=== PATIENT | female | born 1950 | race Caucasian/White ===

== ENCOUNTER 2017-06-24 13:48 | Inpatient (IN) | payer BC, MEDICARE ==
[2017-06-24] MEDS ORDERED: Albuterol/Ipratropium 3.0-0.5 MG/3 ML Neb Soln NEB ONE (14:02)
[2017-06-24] MEDS ORDERED: methylPREDNISolone Sodium Succinate 125 MG/2 ML SDV IVPUSH STA (14:08)
[2017-06-24] MEDS ORDERED: LORazepam 2 MG/ML Syringe IVPUSH ONE (14:09)
--- NOTE | 2017-06-24 14:24 | EDM.PDOC ---
ED HPI GENERAL MEDICAL PROBLEM - General Chief Complaint: Respiratory Problem Stated Complaint: COPD exac Time Seen by Provider: 06/24/17 14:02 Source of Information: Reports: Patient History Limitations: Reports: No Limitations, Respiratory Distress (at times has to stop and catch her breath while speaking. Can not finish a complete sentence. ) - History of Present Illness INITIAL COMMENTS - FREE TEXT/NARRATIVE: This patient is a 66 year old female that presents to the ER. Patient daughter is also patient historian due to patient shortness of breath. At times the patient is not able to complete full sentences. The patient reports she used to be a smoker and stopped smoking in December this year. She reports she has a history of having COPD. She reports that she has chronic shortness of breath, but the last 1 week has been worse. She reports she was seen by her PCP and prescribed an abx and steroid on June 18. She reports that since then, her breathing has become worse. She reports that the last 24 horus she has increased in her shortness of breath. She reports that last night she did not sleep much because she was to short of breath. She reports she has taken multiple breathing treatments today. She reports that she took 2 of them prior to coming to the ER today. The patient presents anxious and is crying. She reports that she does not want to be admitted to the hospital, but has agreed due to her shortness of breath. The patient denies hernandez, dizziness, n, v, d, f, abd pain, urinary/bowel changes. She does report some chest tightness due to shortness of breath. Onset Date: 06/17/17 Duration: Getting Worse Severity: Moderate Worsens with: Reports: Movement Associated Symptoms: Reports: Cough, Shortness of Breath. 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 Treatments - Related Data Allergies Allergy/AdvReac Type Severity Reaction Status Date / Time erythromycin base Allergy Hives Verified 06/24/17 13:54 latex Allergy Hives Verified 06/24/17 13:53 Sulfa (Sulfonamide Allergy Hives Verified 06/24/17 13:54 Antibiotics) Home Meds: Home Meds Albuterol Sulfate [Proair Hfa] 2 puff INH Q4H PRN 06/24/17 [History] Atenolol/Chlorthalidone [Atenolol-Chlorthalidone 100-25] 50 mg PO DAILY [History] Cefuroxime Axetil [Cefuroxime] 250 mg PO BID 06/24/17 [History] Ipratropium/Albuterol Sulfate [IJD: DuoNeb 3.0-0.5 MG/3 ML] 3 ml INH Q4H PRN [History] Mometasone/Formoterol [Dulera 200-5 MCG] 2 puff INH BID 06/24/17 [History] Potassium Chloride [Potassium Chloride] 20 mg PO DAILY 06/24/17 [History] ED ROS GENERAL - Review of Systems Review Of Systems: See Below Constitutional: Reports: No Symptoms HEENT: Reports: No Symptoms Respiratory: Reports: Shortness of Breath, Wheezing, Cough Cardiovascular: Reports: No Symptoms Endocrine: Reports: No Symptoms GI/Abdominal: Reports: No Symptoms : Reports: No Symptoms Musculoskeletal: Reports: No Symptoms Skin: Reports: No Symptoms Neurological: Reports: No Symptoms Psychiatric: Reports: Anxiety Hematologic/Lymphatic: Reports: No Symptoms Immunologic: Reports: No Symptoms ED EXAM, GENERAL - Physical Exam Exam: See Below Exam Limited By: Respiratory Distress (mild) General Appearance: Alert, WD/WN, No Apparent Distress Eye Exam: Bilateral Eye: Normal Inspection, PERRL Ears: Normal External Exam, Normal Canal, Hearing Grossly Normal, Normal TMs Ear Exam: Bilateral Ear: Auricle Normal, Canal Normal, TM normal Nose: Normal Inspection, Normal Mucosa, No Blood Throat/Mouth: Normal Inspection, Normal Lips, Normal Teeth, Normal Gums, Normal Oropharynx, Normal Voice, No Airway Compromise Head: Atraumatic, Normocephalic Neck: Normal Inspection, Supple, Non-Tender, Full Range of Motion Respiratory/Chest: Respiratory Distress (mild, not able to converse in full sentences. ), Decreased Breath Sounds (moderately throughout. More significant RLL. ), Crackles (RLL). No: Retractions Cardiovascular: Normal Peripheral Pulses, Regular Rate, Rhythm, No Edema, No Gallop, No JVD, No Murmur, No Rub Peripheral Pulses: 2+: Radial (L), Radial (R), Posterior Tibial (L), Posterior Tibial (R), Dorsalis Pedis (L), Dorsalis Pedis (R) GI/Abdominal: Normal Bowel Sounds, Soft, Non-Tender, No Organomegaly, No Distention, No Abnormal Bruit, No Mass, Pelvis Stable Back Exam: Normal Inspection, Full Range of Motion. No: CVA Tenderness (L), CVA Tenderness (R) Extremities: Normal Inspection, Normal Range of Motion, Non-Tender, No Pedal Edema, Normal Capillary Refill Neurological: Alert, Oriented, Normal Cognition, Normal Gait, No Motor/Sensory Deficits Psychiatric: Anxious Skin Exam: Warm, Dry, Intact, Normal Color, No Rash Lymphatic: No Adenopathy EKG INTERPRETATION EKG Date: 06/24/17 Time: 14:20 Rhythm: NSR Rate (Beats/Min): 85 [place]: Normal P-Wave: Present QRS: Normal ST-T: Normal QT: Normal Comparison: NA - No Prior EKG Course - Vital Signs Last Recorded V/S: Last Vital Signs Temp 98.1 F 06/24/17 13:49 Pulse 88 06/24/17 13:49 Resp 20 06/24/17 13:49 BP 157/92 H 06/24/17 13:49 Pulse Ox 94 L 06/24/17 13:49 - Orders/Labs/Meds Orders: Active Orders 24 hr Category Date Time Status RT Aerosol Therapy [RC] ASDIRECTED Care 06/24/17 14:04 Active Chest 2V [CR] Stat Exams 06/24/17 14:01 Taken CULTURE BLOOD [BC] Stat Lab 06/24/17 14:25 Received CULTURE BLOOD [BC] Stat Lab 06/24/17 14:30 Received Blood Culture x2 Reflex Set [OM.PC] Stat Oth 06/24/17 14:01 Ordered Labs: Laboratory Tests 06/24/17 06/24/17 06/24/17 Range/Units 14:25 14:25 14:25 WBC 21.2 H* (5.0-10.0) 10^3/uL RBC 4.00 (4.00-5.50) 10^6/uL Hgb 13.0 (12.0-16.0) g/dL Hct 38.1 (37.0-47.0) % MCV 95.3 H (82.0-94.0) fL MCH 32.5 H (27.0-32.0) pg MCHC 34.1 (33.0-38.0) g/dL RDW Coeff of Zach 12.6 (11.0-15.0) % Plt Count 741 H (150-400) 10^3/uL Neut % (Auto) Crm Technical Lead Lymph % (Auto) Crm Technical Lead [place] % (Auto) Crm Technical Lead Eos % (Auto) Crm Technical Lead Baso % (Auto) Crm Technical Lead Neut # (Auto) Crm Technical Lead Lymph # (Auto) Crm Technical Lead [place] # (Auto) Crm Technical Lead Eos # (Auto) Crm Technical Lead Baso # (Auto) Crm Technical Lead Add Manual Diff Yes Neutrophils % (Manual) 72 (35-85) % Band Neutrophils % 3 (0-5) % Lymphocytes % (Manual) 12 L (21-55) % Monocytes % (Manual) 10 (2-12) % Eosinophils % (Manual) 3 (0-5) % Absolute Neutrophils 15.90 H (1.80-7.00) 10^3/uL Lymphocytes # (Manual) 2.54 (1.00-4.80) 10^3/uL Monocytes # (Manual) 2.12 H (0.00-0.80) 10^3/uL Eosinophils # (Manual) 0.64 H (0.00-0.45) 10^3/uL Hypersegmented Neuts Few H (NOT SEEN) Platelet Estimate Increased H (ADEQUATE) Sodium 133 L (136-145) mEq/L Potassium 3.2 L (3.5-5.0) mEq/L Chloride 92 L (98-106) mEq/L Carbon Dioxide 28 (21-32) mmol/L BUN 13 (7-18) mg/dL Creatinine 0.7 (0.6-1.0) mg/dL Est Cr Clr Drug Dosing 62.53 mL/min Estimated GFR (MDRD) > 60 (>=60) mL/min Glucose 141 H (75-99) mg/dL Lactic Acid 1.7 (0.4-2.0) mmol/L Calcium 8.9 (8.4-10.1) mg/dL Total Bilirubin 0.7 (0.0-1.0) mg/dL AST 18 (15-37) U/L ALT 50 (12-78) U/L Alkaline Phosphatase 77 (46-116) U/L Troponin I < 0.017 (0.00-0.06) ng/mL C-Reactive Protein 31.5 H (0.2-0.8) mg/dL [id number] Pept 160 (0-1000) pg/nL Total Protein 7.7 (6.4-8.2) g/dL Albumin 2.7 L (3.4-5.0) g/dL Meds: Medications Discontinued Medications Generic Name Dose Route Start Last Admin Trade Name Cordell PRN Reason Stop Dose Admin Albuterol/Ipratropium 6 ml 06/24/17 14:02 06/24/17 14:05 Duoneb 3.0-0.5 Mg/3 Ml NEB 06/24/17 14:03 6 ml ONETIME ONE Administration Lorazepam 0.5 mg 06/24/17 14:09 06/24/17 14:32 Ativan IVPUSH 06/24/17 14:10 0.5 mg ONETIME ONE Administration Methylprednisolone Sodium Succinate 125 mg 06/24/17 14:08 06/24/17 14:33 Solu-Medrol IVPUSH 06/24/17 14:09 125 mg NOW STA Administration - Radiology Interpretation Free Text/Narrative:: CXR: Infiltrate RLL. No cardiac enlargement. no pulmonary edema. Departure - Departure Time of Disposition: 15:23 Disposition: Admitted As Inpatient 66 Condition: Fair Clinical Impression: COPD exacerbation, Respiratory distress Pneumonia Qualifiers: Pneumonia type: due to unspecified organism Laterality: right Lung location: lower lobe of lung Qualified Code(s): J18.1 - Lobar pneumonia, unspecified organism - Discharge Information - My Orders Last 24 Hours: My Active Orders 06/24/17 14:01 Chest 2V [CR] Stat Blood Culture x2 Reflex Set [OM.PC] Stat 06/24/17 14:04 RT Aerosol Therapy [RC] ASDIRECTED 06/24/17 14:25 CULTURE BLOOD [BC] Stat 06/24/17 14:30 CULTURE BLOOD [BC] Stat - Assessment/Plan Last 24 Hours: My Active Orders 06/24/17 14:01 Chest 2V [CR] Stat Blood Culture x2 Reflex Set [OM.PC] Stat 06/24/17 14:04 RT Aerosol Therapy [RC] ASDIRECTED 06/24/17 14:25 CULTURE BLOOD [BC] Stat 06/24/17 14:30 CULTURE BLOOD [BC] Stat Plan: PLEASE SEE RN NOTE FOR PFSH. PLEASE USE ER H&P ADMIT H&P.
[2017-06-24 15:00] LABS: CHLORIDE,CL 92 mEq/L (98-106); SODIUM,NA 133 mEq/L (136-145)
[2017-06-24] MEDS ORDERED: Ondansetron 4 MG/2 ML SDV IV PRN (15:39)
[2017-06-24] MEDS ORDERED: Albuterol/Ipratropium 3.0-0.5 MG/3 ML Neb Soln NEB PRN (15:39)
[2017-06-24] MEDS ORDERED: Albuterol 8 GM Inhaler INH PRN (15:39)
[2017-06-24] MEDS ORDERED: Ibuprofen 200 MG Tab PO PRN (15:39)
[2017-06-24] MEDS ORDERED: LORazepam 2 MG/ML Syringe IVPUSH PRN (15:39)
[2017-06-24] MEDS ORDERED: Acetaminophen 325 MG Tab PO PRN (15:39)
[2017-06-24] MEDS ORDERED: Morphine 2 MG/ML Syringe IVPUSH PRN (15:39)
[2017-06-24] MEDS ORDERED: Sodium Chloride 0.9% 1,000 ML IV SCH (15:39)
[2017-06-24] MEDS ORDERED: Enoxaparin 40 MG/0.4 ML Syringe SUBCUT SCH (16:00)
[2017-06-24] MEDS ORDERED: Levofloxacin/Dextrose 5%-Water 750 MG in Premix Bag 1 BAG IV SCH (16:00)
[2017-06-24] MEDS: Albuterol/Ipratropium 3.0-0.5 MG/3 ML Neb Soln NEB SCH ×2 (16:35→20:06)
[2017-06-24] MEDS: Acetaminophen/HYDROcodone 325-5 MG Tab PO PRN ×2 (16:45→21:35)
[2017-06-24] MEDS ORDERED: Cefuroxime 250 MG Tab PO SCH (20:00)
[2017-06-24] MEDS: Formoterol/Mometasone 200-5 MCG 8.8 GM Inhaler IH SCH (20:05)
[2017-06-25 07:34] LABS: CHLORIDE,CL 97 mEq/L (98-106); SODIUM,NA 136 mEq/L (136-145)
[2017-06-25] MEDS: Atenolol 50 MG Tab PO SCH (07:44)
[2017-06-25] MEDS: Potassium Chloride 10 MEQ Tab.ER PO SCH (07:44)
[2017-06-25] MEDS: Chlorthalidone 25 MG Tab PO SCH (07:45)
[2017-06-25] MEDS: Formoterol/Mometasone 200-5 MCG 8.8 GM Inhaler IH SCH ×2 (07:46→21:46)
[2017-06-25] MEDS: methylPREDNISolone Sodium Succinate 125 MG/2 ML SDV IVPUSH SCH (07:47)
[2017-06-25] MEDS: Albuterol/Ipratropium 3.0-0.5 MG/3 ML Neb Soln NEB SCH ×4 (10:09→21:46)
[2017-06-25] MEDS: Acetaminophen/HYDROcodone 325-5 MG Tab PO PRN (17:23)
--- NOTE | 2017-06-25 19:28 | PCM.PN ---
- General Info Date of Service: 06/25/17 Admission Dx/Problem (Free Text): RLL Pneumonia Functional Status: Reports: Pain Controlled, Tolerating Diet - Review of Systems General: Reports: Weakness, Fatigue. Denies: Fever HEENT: Reports: Rhinitis. Denies: Ear Pain, Sore Throat Pulmonary: Reports: Shortness of Breath, Cough, Wheezing Cardiovascular: Denies: Chest Pain, Edema, Lightheadedness Gastrointestinal: Denies: Abdominal Pain, Decreased Appetite, Diarrhea, Nausea, Vomiting Genitourinary: Reports: No Symptoms Musculoskeletal: Reports: No Symptoms Skin: Reports: No Symptoms Neurological: Reports: No Symptoms Psychiatric: Reports: No Symptoms - Patient Data Vitals - Most Recent: Last Vital Signs Temp 96.3 F 06/25/17 16:00 Pulse 94 06/25/17 16:00 Resp 18 06/25/17 16:00 BP 119/72 06/25/17 16:00 Pulse Ox 94 L 06/25/17 16:00 Weight - Most Recent: 175 lb 4.28 oz I&O - Last 24 Hours: Intake & Output 06/25/17 06/25/17 06/25/17 06:59 14:59 22:59 Intake Total 450 Balance 450 Lab Results Last 24 Hours: Laboratory Results - last 24 hr 06/25/17 06/25/17 06/25/17 Range/Units 06:50 06:55 06:55 WBC 20.1 H* (5.0-10.0) 10^3/uL RBC 3.92 L (4.00-5.50) 10^6/uL Hgb 12.8 (12.0-16.0) g/dL Hct 37.7 (37.0-47.0) % MCV 96.2 H (82.0-94.0) fL MCH 32.7 H (27.0-32.0) pg MCHC 34.0 (33.0-38.0) g/dL RDW Coeff of Zach 12.1 (11.0-15.0) % Plt Count 758 H (150-400) 10^3/uL Neut % (Auto) 87.8 H (35-85) % Lymph % (Auto) 7.8 L (10-55) % [place] % (Auto) 4.4 (0-16) % Eos % (Auto) 0 (0-5) % Baso % (Auto) 0 (0-3) % Neut # (Auto) 17.67 H (1.80-7.00) 10^3/uL Lymph # (Auto) 1.57 (1.00-4.80) 10^3/uL [place] # (Auto) 0.89 H (0.00-0.80) 10^3/uL Eos # (Auto) 0.01 (0.00-0.45) 10^3/uL Baso # (Auto) 0.00 10^3/uL Sodium 136 (136-145) mEq/L Potassium 3.2 L (3.5-5.0) mEq/L Chloride 97 L (98-106) mEq/L Carbon Dioxide 27 (21-32) mmol/L BUN 12 (7-18) mg/dL Creatinine 0.6 (0.6-1.0) mg/dL Est Cr Clr Drug Dosing 72.95 mL/min Estimated GFR (MDRD) > 60 (>=60) mL/min Glucose 193 H D (75-99) mg/dL Calcium 8.8 (8.4-10.1) mg/dL Magnesium 2.4 (1.8-2.4) mg/dL C-Reactive Protein 33.5 H (0.2-0.8) mg/dL Med Orders - Current: Current Medications Acetaminophen (Tylenol) 650 mg PO Q4H PRN PRN Reason: Pain (Mild 1-3)/fever Hydrocodone Bitart/Acetaminophen ([place] 325-5 Mg) 2 tab PO Q4H PRN PRN Reason: Pain (moderate 4-6) Last Admin: 06/25/17 17:23 Dose: 2 tab Albuterol (Ventolin Hfa) 0 gm INH Q4H PRN PRN Reason: Dyspnea Albuterol/Ipratropium (Duoneb 3.0-0.5 Mg/3 Ml) 3 ml NEB Q4H PRN PRN Reason: Shortness Of Breath/wheezing Albuterol/Ipratropium (Duoneb 3.0-0.5 Mg/3 Ml) 3 ml NEB QIDRT [facility] Last Admin: 06/25/17 15:33 Dose: 3 ml Atenolol (Tenormin) 50 mg PO DAILY [facility] Last Admin: 06/25/17 07:44 Dose: 50 mg Chlorthalidone (Chlorthalidone) 25 mg PO DAILY [facility] Last Admin: 06/25/17 07:45 Dose: 25 mg Enoxaparin Sodium (Lovenox) 40 mg SUBCUT Q24H [facility] Levofloxacin/Dextrose 750 mg/ (Premix) 150 mls @ 100 mls/hr IV Q24H [facility] Ibuprofen (Motrin) 600 mg PO Q6H PRN PRN Reason: Pain (mild 1-3) Last Admin: 06/25/17 07:55 Dose: 600 mg Lorazepam (Ativan) 1 mg IVPUSH Q6H PRN PRN Reason: Nausea/Vomiting Methylprednisolone Sodium Succinate (Solu-Medrol) 125 mg IVPUSH Q24H [facility] Last Admin: 06/25/17 07:47 Dose: 125 mg Mometasone Furoate/Formoterol Fumar (Dulera 200-5 Mcg) 0 puff IH BIDRT [facility] Morphine Sulfate (Morphine) 2 mg IVPUSH Q2H PRN PRN Reason: Pain (severe 7-10) Ondansetron HCl (Zofran) 4 mg IV Q6H PRN PRN Reason: Nausea/Vomiting Potassium Chloride (Klor-Con 10) 20 meq PO DAILY [facility] Last Admin: 06/25/17 07:44 Dose: 20 meq Discontinued Medications Albuterol/Ipratropium (Duoneb 3.0-0.5 Mg/3 Ml) 6 ml NEB ONETIME ONE Stop: 06/24/17 14:03 Last Admin: 06/24/17 14:05 Dose: 6 ml Cefuroxime Axetil (Ceftin) 250 mg PO BID [facility] Enoxaparin Sodium (Lovenox) 40 mg SUBCUT Q24H [facility] Last Admin: 06/24/17 16:48 Dose: 40 mg Levofloxacin/Dextrose 750 mg/ (Premix) 150 mls @ 100 mls/hr IV Q24H [facility] Last Admin: 06/24/17 16:47 Dose: 100 mls/hr Sodium Chloride (Normal Saline) 1,000 mls @ 75 mls/hr IV ASDIRECTED [facility] Last Admin: 06/24/17 16:47 Dose: 75 mls/hr Lorazepam (Ativan) 0.5 mg IVPUSH ONETIME ONE Stop: 06/24/17 14:10 Last Admin: 06/24/17 14:32 Dose: 0.5 mg Methylprednisolone Sodium Succinate (Solu-Medrol) 125 mg IVPUSH NOW STA Stop: 06/24/17 14:09 Last Admin: 06/24/17 14:33 Dose: 125 mg Mometasone Furoate/Formoterol Fumar (Dulera 200-5 Mcg) 0 puff IH BID [facility] Last Admin: 06/25/17 07:46 Dose: 2 puff Non-Formulary Medication (Atenolol/Chlorthalidone [Atenolol-Chlorthalidone 100- 25]) 50 mg PO DAILY [facility] - Exam Quality Assessment: Supplemental Oxygen General: Alert, Oriented HEENT: Mucous Membr. Moist/[place] Neck: Supple Lungs: Decreased Breath Sounds, Wheezing Cardiovascular: Regular Rate, Regular Rhythm GI/Abdominal Exam: Normal Bowel Sounds, Soft, Non-Tender Extremities: Pedal Edema (trace) Skin: Warm, Dry Neurological: No New Focal Deficit - Problem List & Annotations (1) COPD exacerbation SNOMED Code(s): 747672506, [id number] Code(s): J44.1 - CHRONIC OBSTRUCTIVE PULMONARY DISEASE W (ACUTE) EXACERBATION Status: Acute Priority: High Current Visit: Yes (2) Pneumonia SNOMED Code(s): 899292206 Code(s): J18.9 - PNEUMONIA, UNSPECIFIED ORGANISM Status: Acute Priority: High Current Visit: Yes Qualifiers: Pneumonia type: due to unspecified organism Laterality: right Lung location: lower lobe of lung Qualified Code(s): J18.1 - Lobar pneumonia, unspecified organism - Problem List Review Problem List Initiated/Reviewed/Updated: Yes - Assessment Assessment:: RLL pneumonia - Plan Plan:: Patient still continues to have ongoing shortness of breath but admits is better than on admit. Was on antibiotics for 5 days from this provider but felt that over the last 24 hours prior to admit, things really worsened. Had taken 2 treatments at home prior to arrival to ED. Chest xray done in ED showed concern for RLL pneumonia. Although has been on prednisone, WBC was high but CRP 31. Today WBC is still high at 20 with a CRP of 33. Still remains on oxygen. Activity tolerance minimal. States cough is dry today. Afebrile. Blood cultures thus far are negative. Will continue with RT treatments, IV antibiotics and Solu Medrol. Reevaluate in am.
[2017-06-25] MEDS: Enoxaparin 40 MG/0.4 ML Syringe SUBCUT SCH (20:12)
[2017-06-25] MEDS: Levofloxacin/Dextrose 5%-Water 750 MG in Premix Bag 1 BAG IV SCH (20:12)
[2017-06-26] MEDS: methylPREDNISolone Sodium Succinate 125 MG/2 ML SDV IVPUSH SCH (07:44)
[2017-06-26] MEDS: Atenolol 50 MG Tab PO SCH (07:46)
[2017-06-26] MEDS: Chlorthalidone 25 MG Tab PO SCH (07:46)
[2017-06-26] MEDS: Potassium Chloride 10 MEQ Tab.ER PO SCH (07:47)
--- NOTE | 2017-06-26 08:48 | PCM.PN ---
- General Info Date of Service: 06/26/17 Admission Dx/Problem (Free Text): RLL Pneumonia Functional Status: Reports: Pain Controlled, Tolerating Diet. Denies: Ambulating - Review of Systems General: Reports: Weakness, Fatigue. Denies: Fever HEENT: Reports: Rhinitis Pulmonary: Reports: Shortness of Breath, Cough, Wheezing Cardiovascular: Reports: Edema. Denies: Chest Pain, Lightheadedness Gastrointestinal: Denies: Abdominal Pain, Constipation, Decreased Appetite, Diarrhea, Nausea, Vomiting Genitourinary: Reports: No Symptoms Musculoskeletal: Reports: No Symptoms Skin: Reports: Other (flushed) Neurological: Reports: No Symptoms - Patient Data Vitals - Most Recent: Last Vital Signs Temp 96.6 F 06/26/17 07:42 Pulse 81 06/26/17 07:46 Resp 20 06/26/17 07:42 BP 152/81 H 06/26/17 07:46 Pulse Ox 94 L 06/26/17 07:42 Weight - Most Recent: 175 lb 4.28 oz Lab Results Last 24 Hours: Laboratory Results - last 24 hr 06/26/17 Range/Units 05:00 WBC 28.7 H* (5.0-10.0) 10^3/uL RBC 3.64 L (4.00-5.50) 10^6/uL Hgb 11.8 L (12.0-16.0) g/dL Hct 35.2 L (37.0-47.0) % MCV 96.7 H (82.0-94.0) fL MCH 32.4 H (27.0-32.0) pg MCHC 33.5 (33.0-38.0) g/dL RDW Coeff of Zach 12.3 (11.0-15.0) % Plt Count 799 H (150-400) 10^3/uL Add Manual Diff Yes Neutrophils % (Manual) 85 (35-85) % Lymphocytes % (Manual) 8 L (21-55) % Monocytes % (Manual) 5 (2-12) % Basophils % (Manual) 1 (0-3) % Metamyelocytes % 1 % Absolute Neutrophils 24.40 H (1.80-7.00) 10^3/uL Lymphocytes # (Manual) 2.30 (1.00-4.80) 10^3/uL Monocytes # (Manual) 1.44 H (0.00-0.80) 10^3/uL Basophils # (Manual) 0.29 10^3/uL Platelet Estimate Increased H (ADEQUATE) Med Orders - Current: Current Medications Acetaminophen (Tylenol) 650 mg PO Q4H PRN PRN Reason: Pain (Mild 1-3)/fever Hydrocodone Bitart/Acetaminophen ([place] 325-5 Mg) 2 tab PO Q4H PRN PRN Reason: Pain (moderate 4-6) Last Admin: 06/25/17 17:23 Dose: 2 tab Albuterol (Ventolin Hfa) 0 gm INH Q4H PRN PRN Reason: Dyspnea Albuterol/Ipratropium (Duoneb 3.0-0.5 Mg/3 Ml) 3 ml NEB Q4H PRN PRN Reason: Shortness Of Breath/wheezing Albuterol/Ipratropium (Duoneb 3.0-0.5 Mg/3 Ml) 3 ml NEB QIDRT [facility] Last Admin: 06/25/17 21:46 Dose: 3 ml Atenolol (Tenormin) 50 mg PO DAILY [facility] Last Admin: 06/26/17 07:46 Dose: 50 mg Chlorthalidone (Chlorthalidone) 25 mg PO DAILY [facility] Last Admin: 06/26/17 07:46 Dose: 25 mg Enoxaparin Sodium (Lovenox) 40 mg SUBCUT Q24H [facility] Last Admin: 06/25/17 20:12 Dose: 40 mg Levofloxacin/Dextrose 750 mg/ (Premix) 150 mls @ 100 mls/hr IV Q24H [facility] Last Admin: 06/25/17 20:12 Dose: 100 mls/hr Ibuprofen (Motrin) 600 mg PO Q6H PRN PRN Reason: Pain (mild 1-3) Last Admin: 06/25/17 07:55 Dose: 600 mg Lorazepam (Ativan) 1 mg IVPUSH Q6H PRN PRN Reason: Nausea/Vomiting Methylprednisolone Sodium Succinate (Solu-Medrol) 125 mg IVPUSH Q24H [facility] Last Admin: 06/26/17 07:44 Dose: 125 mg Mometasone Furoate/Formoterol Fumar (Dulera 200-5 Mcg) 0 puff IH BIDRT [facility] Last Admin: 06/25/17 21:46 Dose: 2 puff Morphine Sulfate (Morphine) 2 mg IVPUSH Q2H PRN PRN Reason: Pain (severe 7-10) Ondansetron HCl (Zofran) 4 mg IV Q6H PRN PRN Reason: Nausea/Vomiting Potassium Chloride (Klor-Con 10) 20 meq PO DAILY [facility] Last Admin: 06/26/17 07:47 Dose: 20 meq Discontinued Medications Albuterol/Ipratropium (Duoneb 3.0-0.5 Mg/3 Ml) 6 ml NEB ONETIME ONE Stop: 06/24/17 14:03 Last Admin: 06/24/17 14:05 Dose: 6 ml Cefuroxime Axetil (Ceftin) 250 mg PO BID [facility] Enoxaparin Sodium (Lovenox) 40 mg SUBCUT Q24H [facility] Last Admin: 06/24/17 16:48 Dose: 40 mg Levofloxacin/Dextrose 750 mg/ (Premix) 150 mls @ 100 mls/hr IV Q24H [facility] Last Admin: 06/24/17 16:47 Dose: 100 mls/hr Sodium Chloride (Normal Saline) 1,000 mls @ 75 mls/hr IV ASDIRECTED [facility] Last Admin: 06/24/17 16:47 Dose: 75 mls/hr Lorazepam (Ativan) 0.5 mg IVPUSH ONETIME ONE Stop: 06/24/17 14:10 Last Admin: 06/24/17 14:32 Dose: 0.5 mg Methylprednisolone Sodium Succinate (Solu-Medrol) 125 mg IVPUSH NOW STA Stop: 06/24/17 14:09 Last Admin: 06/24/17 14:33 Dose: 125 mg Mometasone Furoate/Formoterol Fumar (Dulera 200-5 Mcg) 0 puff IH BID [facility] Last Admin: 06/25/17 07:46 Dose: 2 puff Non-Formulary Medication (Atenolol/Chlorthalidone [Atenolol-Chlorthalidone 100- 25]) 50 mg PO DAILY [facility] - Exam Quality Assessment: Supplemental Oxygen General: Alert, Oriented HEENT: Mucous Membr. Moist/[place] Neck: Supple Lungs: Decreased Breath Sounds, Wheezing Cardiovascular: Regular Rate, Regular Rhythm GI/Abdominal Exam: Normal Bowel Sounds, Soft, Non-Tender Extremities: Pedal Edema (trace) Skin: Other (face is flushed/red) Neurological: No New Focal Deficit Psy/Mental Status: Alert, Normal Affect, Normal Mood - Problem List & Annotations (1) COPD exacerbation SNOMED Code(s): 822091223, 713519469 Code(s): J44.1 - CHRONIC OBSTRUCTIVE PULMONARY DISEASE W (ACUTE) EXACERBATION Status: Acute Priority: High Current Visit: Yes (2) Pneumonia SNOMED Code(s): 172162687 Code(s): J18.9 - PNEUMONIA, UNSPECIFIED ORGANISM Status: Acute Priority: High Current Visit: Yes Qualifiers: Pneumonia type: due to unspecified organism Laterality: right Lung location: lower lobe of lung Qualified Code(s): J18.1 - Lobar pneumonia, unspecified organism - Problem List Review Problem List Initiated/Reviewed/Updated: Yes - My Orders Last 24 Hours: My Active Orders 06/26/17 08:32 BLOOD SMEARS TO PATHOLOGIST [REF] Routine - Assessment Assessment:: RLL pneumonia - Plan Plan:: Patient still continues to have ongoing shortness of breath but admits is better than on admit. Was on antibiotics for 5 days from this provider but felt that over the last 24 hours prior to admit, things really worsened. Had taken 2 treatments at home prior to arrival to ED. Chest xray done in ED showed concern for RLL pneumonia. Although has been on prednisone, WBC was high but CRP 31. Today WBC is still high at 20 with a CRP of 33. Still remains on oxygen. Activity tolerance minimal. States cough is dry today. Afebrile. Blood cultures thus far are negative. Will continue with RT treatments, IV antibiotics and Solu Medrol. Reevaluate in am. 06-26-2017 Patient somber today. States not sleeping well, tired. Cough persists but remains dry. She does still feel short of breath but feels it is better than it was. She is very flushed today, does not feel warm. Has had no fevers. Lung sounds are diminished, wheezing noted. Still requires oxygen. Vitals are stable. WBC increased to 28.7 today, platelets remain high. Will obtain peripheral smear. Awaiting CRP. Continue Levaquin at this point. Neb treatments. Inappropriate for discharge.
[2017-06-26 09:12] LABS: CHLORIDE,CL 99 mEq/L (98-106); SODIUM,NA 137 mEq/L (136-145)
[2017-06-26] MEDS: Formoterol/Mometasone 200-5 MCG 8.8 GM Inhaler IH SCH ×2 (09:45→20:58)
[2017-06-26] MEDS: Albuterol/Ipratropium 3.0-0.5 MG/3 ML Neb Soln NEB SCH ×4 (09:45→20:59)
[2017-06-26] MEDS: Levofloxacin/Dextrose 5%-Water 750 MG in Premix Bag 1 BAG IV SCH (20:54)
[2017-06-26] MEDS: Enoxaparin 40 MG/0.4 ML Syringe SUBCUT SCH (20:54)
[2017-06-26] MEDS: Temazepam 15 MG Cap PO PRN (20:59)
[2017-06-27] MEDS: Acetaminophen/HYDROcodone 325-5 MG Tab PO PRN ×2 (06:27→23:53)
[2017-06-27 07:39] LABS: CHLORIDE,CL 100 mEq/L (98-106); SODIUM,NA 137 mEq/L (136-145)
[2017-06-27] MEDS: methylPREDNISolone Sodium Succinate 125 MG/2 ML SDV IVPUSH SCH (08:20)
[2017-06-27] MEDS: Potassium Chloride 10 MEQ Tab.ER PO SCH (08:21)
[2017-06-27] MEDS: Atenolol 50 MG Tab PO SCH (08:21)
[2017-06-27] MEDS: Chlorthalidone 25 MG Tab PO SCH (08:21)
[2017-06-27] MEDS: Albuterol/Ipratropium 3.0-0.5 MG/3 ML Neb Soln NEB SCH ×4 (09:00→20:51)
[2017-06-27] MEDS: Formoterol/Mometasone 200-5 MCG 8.8 GM Inhaler IH SCH ×2 (09:00→20:51)
--- NOTE | 2017-06-27 15:54 | PCM.PN ---
- General Info Date of Service: 06/27/17 Admission Dx/Problem (Free Text): RLL Pneumonia Functional Status: Reports: Pain Controlled, Tolerating Diet, Ambulating - Review of Systems General: Reports: Weakness, Fatigue. Denies: Fever HEENT: Reports: Rhinitis Pulmonary: Reports: Shortness of Breath, Cough. Denies: Sputum, Wheezing Cardiovascular: Denies: Chest Pain, Edema, Lightheadedness Gastrointestinal: Denies: Abdominal Pain, Diarrhea, Nausea, Vomiting Genitourinary: Reports: No Symptoms Musculoskeletal: Reports: No Symptoms Skin: Reports: No Symptoms Neurological: Reports: No Symptoms - Patient Data Vitals - Most Recent: Last Vital Signs Temp 96.7 F 06/27/17 11:45 Pulse 70 06/27/17 11:45 Resp 20 06/27/17 11:45 BP 132/76 06/27/17 11:45 Pulse Ox 95 06/27/17 11:45 Weight - Most Recent: 175 lb 4.28 oz Lab Results Last 24 Hours: Laboratory Results - last 24 hr 06/27/17 06/27/17 Range/Units 07:00 07:00 WBC 21.5 H* (5.0-10.0) 10^3/uL RBC 3.71 L (4.00-5.50) 10^6/uL Hgb 12.1 (12.0-16.0) g/dL Hct 35.9 L (37.0-47.0) % MCV 96.8 H (82.0-94.0) fL MCH 32.6 H (27.0-32.0) pg MCHC 33.7 (33.0-38.0) g/dL RDW Coeff of Zach 12.6 (11.0-15.0) % Plt Count 750 H (150-400) 10^3/uL Add Manual Diff Yes Neutrophils % (Manual) 69 (35-85) % Lymphocytes % (Manual) 23 (21-55) % Monocytes % (Manual) 7 (2-12) % Metamyelocytes % 1 % Absolute Neutrophils 14.84 H (1.80-7.00) 10^3/uL Lymphocytes # (Manual) 4.95 H (1.00-4.80) 10^3/uL Monocytes # (Manual) 1.51 H (0.00-0.80) 10^3/uL Sodium 137 (136-145) mEq/L Potassium 3.4 L (3.5-5.0) mEq/L Chloride 100 (98-106) mEq/L Carbon Dioxide 29 (21-32) mmol/L BUN 16 (7-18) mg/dL Creatinine 0.7 (0.6-1.0) mg/dL Est Cr Clr Drug Dosing 62.53 mL/min Estimated GFR (MDRD) > 60 (>=60) mL/min Glucose 199 H (75-99) mg/dL Calcium 8.9 (8.4-10.1) mg/dL C-Reactive Protein 5.5 H (0.2-0.8) mg/dL Med Orders - Current: Current Medications Acetaminophen (Tylenol) 650 mg PO Q4H PRN PRN Reason: Pain (Mild 1-3)/fever Last Admin: 06/26/17 13:16 Dose: 650 mg Hydrocodone Bitart/Acetaminophen ([place] 325-5 Mg) 2 tab PO Q4H PRN PRN Reason: Pain (moderate 4-6) Last Admin: 06/27/17 06:27 Dose: 2 tab Albuterol (Ventolin Hfa) 0 gm INH Q4H PRN PRN Reason: Dyspnea Albuterol/Ipratropium (Duoneb 3.0-0.5 Mg/3 Ml) 3 ml NEB Q4H PRN PRN Reason: Shortness Of Breath/wheezing Albuterol/Ipratropium (Duoneb 3.0-0.5 Mg/3 Ml) 3 ml NEB QIDRT [facility] Last Admin: 06/27/17 13:36 Dose: 3 ml Atenolol (Tenormin) 50 mg PO DAILY [facility] Last Admin: 06/27/17 08:21 Dose: 50 mg Chlorthalidone (Chlorthalidone) 25 mg PO DAILY [facility] Last Admin: 06/27/17 08:21 Dose: 25 mg Enoxaparin Sodium (Lovenox) 40 mg SUBCUT Q24H [facility] Last Admin: 06/26/17 20:54 Dose: 40 mg Levofloxacin/Dextrose 750 mg/ (Premix) 150 mls @ 100 mls/hr IV Q24H [facility] Last Admin: 06/26/17 20:54 Dose: 100 mls/hr Ibuprofen (Motrin) 600 mg PO Q6H PRN PRN Reason: Pain (mild 1-3) Last Admin: 06/25/17 07:55 Dose: 600 mg Lorazepam (Ativan) 1 mg IVPUSH Q6H PRN PRN Reason: Nausea/Vomiting Methylprednisolone Sodium Succinate (Solu-Medrol) 125 mg IVPUSH Q24H [facility] Last Admin: 06/27/17 08:20 Dose: 125 mg Mometasone Furoate/Formoterol Fumar (Dulera 200-5 Mcg) 0 puff IH BIDRT [facility] Last Admin: 06/27/17 09:00 Dose: 2 puff Morphine Sulfate (Morphine) 2 mg IVPUSH Q2H PRN PRN Reason: Pain (severe 7-10) Ondansetron HCl (Zofran) 4 mg IV Q6H PRN PRN Reason: Nausea/Vomiting Potassium Chloride (Klor-Con 10) 20 meq PO DAILY [facility] Last Admin: 06/27/17 08:21 Dose: 20 meq Temazepam (Restoril) 15 mg PO BEDTIME PRN PRN Reason: Insomnia Last Admin: 06/26/17 20:59 Dose: 15 mg Discontinued Medications Albuterol/Ipratropium (Duoneb 3.0-0.5 Mg/3 Ml) 6 ml NEB ONETIME ONE Stop: 06/24/17 14:03 Last Admin: 06/24/17 14:05 Dose: 6 ml Cefuroxime Axetil (Ceftin) 250 mg PO BID [facility] Enoxaparin Sodium (Lovenox) 40 mg SUBCUT Q24H [facility] Last Admin: 06/24/17 16:48 Dose: 40 mg Levofloxacin/Dextrose 750 mg/ (Premix) 150 mls @ 100 mls/hr IV Q24H [facility] Last Admin: 06/24/17 16:47 Dose: 100 mls/hr Sodium Chloride (Normal Saline) 1,000 mls @ 75 mls/hr IV ASDIRECTED [facility] Last Admin: 06/24/17 16:47 Dose: 75 mls/hr Lorazepam (Ativan) 0.5 mg IVPUSH ONETIME ONE Stop: 06/24/17 14:10 Last Admin: 06/24/17 14:32 Dose: 0.5 mg Methylprednisolone Sodium Succinate (Solu-Medrol) 125 mg IVPUSH NOW STA Stop: 06/24/17 14:09 Last Admin: 06/24/17 14:33 Dose: 125 mg Mometasone Furoate/Formoterol Fumar (Dulera 200-5 Mcg) 0 puff IH BID [facility] Last Admin: 06/25/17 07:46 Dose: 2 puff Non-Formulary Medication (Atenolol/Chlorthalidone [Atenolol-Chlorthalidone 100- 25]) 50 mg PO DAILY [facility] - Exam Quality Assessment: Supplemental Oxygen General: Alert, Oriented HEENT: Mucous Membr. Moist/[address] Neck: Supple Lungs: Decreased Breath Sounds Cardiovascular: Regular Rate, Regular Rhythm GI/Abdominal Exam: Normal Bowel Sounds, Soft, Non-Tender Extremities: Normal Inspection, No Pedal Edema Skin: Warm, Dry Neurological: No New Focal Deficit - Problem List & Annotations (1) COPD exacerbation SNOMED Code(s): 836697278, 473103417 Code(s): J44.1 - CHRONIC OBSTRUCTIVE PULMONARY DISEASE W (ACUTE) EXACERBATION Status: Acute Priority: High Current Visit: Yes (2) Pneumonia SNOMED Code(s): 003731159 Code(s): J18.9 - PNEUMONIA, UNSPECIFIED ORGANISM Status: Acute Priority: High Current Visit: Yes Qualifiers: Pneumonia type: due to unspecified organism Laterality: right Lung location: lower lobe of lung Qualified Code(s): J18.1 - Lobar pneumonia, unspecified organism - Problem List Review Problem List Initiated/Reviewed/Updated: Yes - My Orders Last 24 Hours: My Active Orders 06/27/17 09:23 Ambulate [RC] ASDIRECTED - Assessment Assessment:: RLL pneumonia - Plan Plan:: Patient still continues to have ongoing shortness of breath but admits is better than on admit. Was on antibiotics for 5 days from this provider but felt that over the last 24 hours prior to admit, things really worsened. Had taken 2 treatments at home prior to arrival to ED. Chest xray done in ED showed concern for RLL pneumonia. Although has been on prednisone, WBC was high but CRP 31. Today WBC is still high at 20 with a CRP of 33. Still remains on oxygen. Activity tolerance minimal. States cough is dry today. Afebrile. Blood cultures thus far are negative. Will continue with RT treatments, IV antibiotics and Solu Medrol. Reevaluate in am. 06-26-2017 Patient somber today. States not sleeping well, tired. Cough persists but remains dry. She does still feel short of breath but feels it is better than it was. She is very flushed today, does not feel warm. Has had no fevers. Lung sounds are diminished, wheezing noted. Still requires oxygen. Vitals are stable. WBC increased to 28.7 today, platelets remain high. Will obtain peripheral smear. Awaiting CRP. Continue Levaquin at this point. Neb treatments. Inappropriate for discharge. 06-27-2017 Patient admits to feeling better today. Cough still dry, tight. Feels she is breathing better. Was up ambulating in halls yesterday without oxygen, no sats were checked at that time. Will try to wean her down from the 2 liters today and ambulate and check tolerance. Patient's labs are improving. WBC is down to 21.5 from 28 yesterday. CRP improving, now 5.5. Potassium is stable at 3.4 today. Will continue current IV antibiotics, encourage more ambulation, wean off oxygen if able. Questionable discharge in next day or 2.
[2017-06-27] MEDS: Enoxaparin 40 MG/0.4 ML Syringe SUBCUT SCH (20:50)
[2017-06-27] MEDS: Temazepam 15 MG Cap PO PRN (20:56)
[2017-06-27] MEDS: Levofloxacin/Dextrose 5%-Water 750 MG in Premix Bag 1 BAG IV SCH (20:56)
[2017-06-28] MEDS: methylPREDNISolone Sodium Succinate 125 MG/2 ML SDV IVPUSH SCH (08:23)
[2017-06-28] MEDS: Potassium Chloride 10 MEQ Tab.ER PO SCH (08:24)
[2017-06-28] MEDS: Chlorthalidone 25 MG Tab PO SCH (08:24)
[2017-06-28 08:25] VITALS: BP 162/101
[2017-06-28] MEDS: Atenolol 50 MG Tab PO SCH (08:25)
[2017-06-28] MEDS: Albuterol/Ipratropium 3.0-0.5 MG/3 ML Neb Soln NEB SCH (08:26)
[2017-06-28] MEDS: Formoterol/Mometasone 200-5 MCG 8.8 GM Inhaler IH SCH (08:26)
--- NOTE | 2017-06-28 21:25 | PCM.DCSUM1 ---
Discharge Summary - Hospital Course Free Text/Narrative:: Patient presented to ED with increased shortness of breath, wheezing. Had been on antibiotics and steroids prior to presentation but was not seeing improvement. Had been using nebulizer treatments without relief. Labs on presentation showed a WBC of 21.2 with a CRP of 31.5. Platelets increased. Hemoglobin stable. Chest xray shows an infiltrate in the right lower lobe. Admitted and started on Levaquin and Solu Medrol. Oxygen at 2 liters. - Discharge Data Discharge Date: 06/28/17 Discharge Disposition: Home, Self-Care 01 Condition: Fair - Discharge Diagnosis/Problem(s) (1) COPD exacerbation SNOMED Code(s): 915374470, [id number] ICD Code: J44.1 - CHRONIC OBSTRUCTIVE PULMONARY DISEASE W (ACUTE) EXACERBATION Status: Acute Priority: High (2) Pneumonia SNOMED Code(s): 706595620 ICD Code: J18.9 - PNEUMONIA, UNSPECIFIED ORGANISM Status: Acute Priority : High Qualifiers: Pneumonia type: due to unspecified organism Laterality: right Lung location: lower lobe of lung Qualified Code(s): J18.1 - Lobar pneumonia, unspecified organism - Patient Summary/Data Complications: none Hospital Course: Patient has had slow improvement of her overall breathing status. Is now better able to tolerate activity. Able to be weaned off oxygen. Remains afebrile. Labs have improvement with WBC peaking at 28.7 but also had had days of steroid use and CRP has responded well from 31.5 to a peak of 33.5 and today on discharge, is 3.1. Patient eating well. Cough remains dry but better air exchange noted. - Patient Instructions Diet: Usual Diet as Tolerated Activity: As Tolerated - Discharge Plan Prescriptions/Med Rec: Levofloxacin [Levaquin] 500 mg PO Q24H #20 tablet Prednisone [IJD: predniSONE] 20 mg PO WITHBREAKFAST #7 tab Home Medications: Home Meds Albuterol Sulfate [Proair Hfa] 2 puff INH Q4H PRN 06/24/17 [History] Atenolol/Chlorthalidone [Atenolol-Chlorthalidone 100-25] 1 tab PO DAILY [History] Ipratropium/Albuterol Sulfate [IJD: DuoNeb 3.0-0.5 MG/3 ML] 3 ml INH Q4H PRN [History] Mometasone/Formoterol [Dulera 200-5 MCG] 2 puff INH BID 06/24/17 [History] Potassium Chloride 20 meq PO DAILY 06/24/17 [History] Levofloxacin [Levaquin] 500 mg PO Q24H #20 tablet 06/28/17 [Rx] Prednisone [IJD: predniSONE] 20 mg PO WITHBREAKFAST #7 tab 06/28/17 [Rx] Forms: ED Department Discharge Referrals: Destiny Del Toro PA [Family Provider] - (Follow up in [place] in one week, lab and chest xray prior to visit) - Discharge Summary/Plan Comment DC Time >30 min.: No Discharge Summary/Plan Comment: Discharge home. Continue oral Levaquin and prednisone 20 mg for the next 7 days. Continue DuoNebs QID and Dulera. Follow up in clinic in a week. No work until that time. - General Info Date of Service: 06/28/17 Admission Dx/Problem (Free Text: RLL Pneumonia Functional Status: Reports: Pain Controlled, Tolerating Diet, Ambulating - Review of Systems General: Reports: Fatigue. Denies: Fever, Weakness HEENT: Reports: Sinus Congestion, Rhinitis Pulmonary: Reports: Shortness of Breath, Cough. Denies: Wheezing Cardiovascular: Denies: Chest Pain, Edema, Lightheadedness Gastrointestinal: Reports: No Symptoms Genitourinary: Reports: No Symptoms Musculoskeletal: Reports: No Symptoms Skin: Reports: No Symptoms Neurological: Reports: No Symptoms - Patient Data Vitals - Most Recent: Last Vital Signs Temp 96.8 F 06/28/17 08:00 Pulse 80 06/28/17 08:25 Resp 20 06/28/17 08:00 BP 162/101 H 06/28/17 08:25 Pulse Ox 91 L 06/28/17 08:00 Weight - Most Recent: 175 lb 4.28 oz Lab Results - Last 24 hrs: Laboratory Results - last 24 hr 06/28/17 06/28/17 Range/Units 08:47 08:47 WBC 25.7 H* (5.0-10.0) 10^3/uL RBC 3.99 L (4.00-5.50) 10^6/uL Hgb 13.0 (12.0-16.0) g/dL Hct 38.9 (37.0-47.0) % MCV 97.5 H (82.0-94.0) fL MCH 32.6 H (27.0-32.0) pg MCHC 33.4 (33.0-38.0) g/dL RDW Coeff of Zach 12.7 (11.0-15.0) % Plt Count 792 H (150-400) 10^3/uL Add Manual Diff Yes Neutrophils % (Manual) 71 (35-85) % Lymphocytes % (Manual) 24 (21-55) % Monocytes % (Manual) 5 (2-12) % Absolute Neutrophils 18.25 H (1.80-7.00) 10^3/uL Lymphocytes # (Manual) 6.17 H (1.00-4.80) 10^3/uL Monocytes # (Manual) 1.29 H (0.00-0.80) 10^3/uL C-Reactive Protein 3.1 H (0.2-0.8) mg/dL FLAKO Results - Last 24 hrs: Microbiology 06/28/17 10:15 Gram Stain - Final Sputum - Expectorated Med Orders - Current: Current Medications Discontinued Medications Acetaminophen (Tylenol) 650 mg PO Q4H PRN PRN Reason: Pain (Mild 1-3)/fever Last Admin: 06/26/17 13:16 Dose: 650 mg Hydrocodone Bitart/Acetaminophen ([place] 325-5 Mg) 2 tab PO Q4H PRN PRN Reason: Pain (moderate 4-6) Last Admin: 06/27/17 23:53 Dose: 2 tab Albuterol (Ventolin Hfa) 0 gm INH Q4H PRN PRN Reason: Dyspnea Albuterol/Ipratropium (Duoneb 3.0-0.5 Mg/3 Ml) 6 ml NEB ONETIME ONE Stop: 06/24/17 14:03 Last Admin: 06/24/17 14:05 Dose: 6 ml Albuterol/Ipratropium (Duoneb 3.0-0.5 Mg/3 Ml) 3 ml NEB Q4H PRN PRN Reason: Shortness Of Breath/wheezing Albuterol/Ipratropium (Duoneb 3.0-0.5 Mg/3 Ml) 3 ml NEB QIDRT [facility] Last Admin: 06/28/17 08:26 Dose: 3 ml Atenolol (Tenormin) 50 mg PO DAILY [facility] Last Admin: 06/28/17 08:25 Dose: 50 mg Cefuroxime Axetil (Ceftin) 250 mg PO BID [facility] Chlorthalidone (Chlorthalidone) 25 mg PO DAILY [facility] Last Admin: 06/28/17 08:24 Dose: 25 mg Enoxaparin Sodium (Lovenox) 40 mg SUBCUT Q24H [facility] Last Admin: 06/24/17 16:48 Dose: 40 mg Enoxaparin Sodium (Lovenox) 40 mg SUBCUT Q24H [facility] Last Admin: 06/27/17 20:50 Dose: 40 mg Levofloxacin/Dextrose 750 mg/ (Premix) 150 mls @ 100 mls/hr IV Q24H [facility] Last Admin: 06/24/17 16:47 Dose: 100 mls/hr Sodium Chloride (Normal Saline) 1,000 mls @ 75 mls/hr IV ASDIRECTED [facility] Last Admin: 06/24/17 16:47 Dose: 75 mls/hr Levofloxacin/Dextrose 750 mg/ (Premix) 150 mls @ 100 mls/hr IV Q24H [facility] Last Admin: 06/27/17 20:56 Dose: 100 mls/hr Ibuprofen (Motrin) 600 mg PO Q6H PRN PRN Reason: Pain (mild 1-3) Last Admin: 06/25/17 07:55 Dose: 600 mg Lorazepam (Ativan) 0.5 mg IVPUSH ONETIME ONE Stop: 06/24/17 14:10 Last Admin: 06/24/17 14:32 Dose: 0.5 mg Lorazepam (Ativan) 1 mg IVPUSH Q6H PRN PRN Reason: Nausea/Vomiting Methylprednisolone Sodium Succinate (Solu-Medrol) 125 mg IVPUSH NOW STA Stop: 06/24/17 14:09 Last Admin: 06/24/17 14:33 Dose: 125 mg Methylprednisolone Sodium Succinate (Solu-Medrol) 125 mg IVPUSH Q24H [facility] Last Admin: 06/28/17 08:23 Dose: 125 mg Mometasone Furoate/Formoterol Fumar (Dulera 200-5 Mcg) 0 puff IH BID [facility] Last Admin: 06/25/17 07:46 Dose: 2 puff Mometasone Furoate/Formoterol Fumar (Dulera 200-5 Mcg) 0 puff IH BIDRT [facility] Last Admin: 06/28/17 08:26 Dose: 1 puff Morphine Sulfate (Morphine) 2 mg IVPUSH Q2H PRN PRN Reason: Pain (severe 7-10) Non-Formulary Medication (Atenolol/Chlorthalidone [Atenolol-Chlorthalidone 100- 25]) 50 mg PO DAILY [facility] Ondansetron HCl (Zofran) 4 mg IV Q6H PRN PRN Reason: Nausea/Vomiting Potassium Chloride (Klor-Con 10) 20 meq PO DAILY [facility] Last Admin: 06/28/17 08:24 Dose: 20 meq Temazepam (Restoril) 15 mg PO BEDTIME PRN PRN Reason: Insomnia Last Admin: 06/27/17 20:56 Dose: 15 mg - Exam General: Reports: Alert, Oriented HEENT: Reports: Mucous Membr. Moist/[place] Neck: Reports: Supple Lungs: Reports: Clear to Auscultation, Normal Respiratory Effort Cardiovascular: Reports: Regular Rate, Regular Rhythm GI/Abdominal Exam: Normal Bowel Sounds, Soft, Non-Tender Extremities: Normal Inspection Skin: Reports: Warm, Dry Neurological: Reports: No New Focal Deficit *Q Meaningful Use (DIS) - VTE *Q VTE Criteria *Q: - Stroke *Q Stroke Criteria *Q: - AMI *Q AMI Criteria *Q:
== END 2017-06-28 11:45 | disposition home or self-care (01) | DRG 140 ==
LOC: CC.ED 13:48 → CC.MS 15:00 → UNDOADMIN 15:00 → CC.MS 15:39
PROVIDERS: ADMIT Nurse Practitioner; ATTEND Family Medicine
DX: J44.0 Chronic obstructive pulmonary disease with (acute) lower respiratory infection (principal); J18.9 Pneumonia, unspecified organism; J44.1 Chronic obstructive pulmonary disease with (acute) exacerbation; Z79.52 Long term (current) use of systemic steroids; Z87.891 Personal history of nicotine dependence
CPT/HCPCS: 36415; 71020; 80048; 80053; 83605; 83735; 83880; 84484; 85025; 85045; 86140; 87040; 87070; 87077; 87186; 87205; 93005; 94640; 94640-76; 96374; 96375; 99285; A9270-GY; J1650; J1956; J2060; J2930; J7030

== ENCOUNTER 2024-11-13 14:16 | Observation (INO) | payer MEDICARE, BC ==
[2024-11-13] MEDS ORDERED: Sodium Chloride 0.9% 10 ML Syringe FLUSH PRN (14:24)
[2024-11-13] MEDS ORDERED: Temazepam 15 MG Cap PO PRN (14:26)
[2024-11-13] MEDS ORDERED: Ondansetron 4 MG Tab.DIS PO PRN (14:26)
[2024-11-13] MEDS ORDERED: Acetaminophen 325 MG Tab PO PRN (14:26)
[2024-11-13] MEDS: Iopamidol 755 Mg/ML 100 ML Bottle IVPUSH ONE (15:02)
[2024-11-13] MEDS: Sodium Chloride 0.9% 1,000 ML IV ONE (15:06)
[2024-11-13] MEDS: Sodium Chloride 0.9% 1,000 ML IV SCH (16:05)
[2024-11-13] MEDS: Ondansetron 4 MG/2 ML SDV IV PRN (16:12)
[2024-11-13] MEDS ORDERED: Albuterol 6.7 GM Inhaler INH PRN (16:42)
[2024-11-13] MEDS: Albuterol 0.042% 1.25 MG/3 ML Neb Soln INH PRN (19:36)
[2024-11-13] MEDS: Acetaminophen/HYDROcodone 325-5 MG Tab PO PRN (22:12)
[2024-11-14] MEDS: Escitalopram 10 MG Tab PO SCH (07:51)
[2024-11-14] MEDS: Potassium Chloride 20 MEQ Tab.ER PO SCH (07:51)
[2024-11-14] MEDS: Lisinopril 20 MG Tab PO SCH (07:51)
[2024-11-14] MEDS: Hydrochlorothiazide 25 MG Tab PO SCH (07:52)
[2024-11-14 07:53] VITALS: BP 125/62
[2024-11-14 07:57] LABS: BASOPHILS ABSOLUTE AUTO 0.04 10^3/uL (0.00-0.50); BASOPHILS PERCENT AUTO 0.5 % (0-1); EOSINOPHILS ABSOLUTE AUTO 0.36 10^3/uL (0.00-1.50); EOSINOPHILS PERCENT AUTO 4.1 % (0-6); HEMATOCRIT 34.7 % (37.0-47.0); HEMOGLOBIN 11.6 g/dL (12.0-16.0); IMMATURE GRAN ABSOLUTE AUTO 0.02 10^3/uL (0.00-0.49); IMMATURE GRAN PERCENT AUTO 0.2 % (0.0-4.9); LYMPHOCYTES ABSOLUTE AUTO 2.98 10^3/uL (0.60-5.00); LYMPHOCYTES PERCENT AUTO 34.2 % (24-44); MEAN CORPUSCULAR HEMOGLOBIN 33.5 pg (27.0-32.0); MEAN CORPUSCULAR HGB CONC 33.4 g/dL (32.0-36.0); MEAN CORPUSCULAR VOLUME 100.3 fL (83.0-97.0); MONOCYTES ABSOLUTE AUTO 1.25 10^3/uL (0.00-1.50); MONOCYTES PERCENT AUTO 14.3 % (0-10); NEUTROPHILS ABSOLUTE AUTO 4.07 x10^3/uL (1.80-8.00); NEUTROPHILS PERCENT AUTO 46.7 % (41-71); PLATELET COUNT,PLT 269 10^3/uL (150-400); RED BLOOD CELL COUNT 3.46 x10^6/uL (4.00-5.50); WHITE BLOOD CELL COUNT,WBC 8.7 10^3/uL (4.0-11.0)
[2024-11-14 08:11] LABS: ALBUMIN 2.8 g/dL (3.4-5.0); BILIRUBIN TOTAL 0.4 mg/dL (0.0-1.0); C-REACTIVE PROTEIN 1.31 mg/dL (<=0.50); CALCIUM 8.5 mg/dL (8.4-10.1); CREATININE 1.6 mg/dL (0.6-1.0); EST CRCL DRUG DOSING (CG) 24.4 mL/min; POTASSIUM,K 4.1 mEq/L (3.5-5.0); PROTEIN TOTAL,TP 5.9 g/dL (6.4-8.2)
[2024-11-14 09:01] VITALS: PULSE 72
[2024-11-15] MEDS ORDERED: Potassium Chloride 10 MEQ Tab.ER PO SCH (08:00)
== END 2024-11-14 11:55 | disposition home or self-care (01) ==
LOC: CC.MS 14:16 → UNDOADMOB 14:16 → CC.MS 14:26
PROVIDERS: ADMIT Nurse Practitioner Family; ATTEND Nurse Practitioner Family
DX: J18.9 Pneumonia, unspecified organism (principal); R53.1 Weakness; E86.0 Dehydration; I10 Essential (primary) hypertension; J44.9 Chronic obstructive pulmonary disease, unspecified; Z79.899 Other long term (current) drug therapy; Z88.2 Allergy status to sulfonamides; Z91.040 Latex allergy status
CPT/HCPCS: 36415; 71260; 74177; 80053; 85025; 86140; 94640; 96361; 96374; A9270; G0378; J2405; J7030; Q9967; 71046; 99223; 99238